=== PATIENT | female | born 1980 | race Caucasian/White ===

== ENCOUNTER 2021-03-11 13:01 | Emergency (ER) | payer BC ==
[2021-03-11 13:45] LABS: #Basophils 0.1 10x3/uL (0.0-0.2); #Eosinphils 0.1 10x3/uL (0.0-0.5); #Monocytes 0.4 10x3/uL (0.0-1.1); %Basophils 0.9 % (0.0-2.0); %Eosinophils 1.4 % (0.0-6.0); %Lymphocytes 23.2 % (18.0-47.0); %Monocytes 5.1 % (0.0-10.0); %Neutrophils 69.1 % (40.0-75.0); Hemoglobin 14.7 g/dL (12.0-15.5); Mean Corpuscular HGB CONC 33.9 g/dL (32.0-36.0); Mean Corpuscular Hemoglobin 31.4 pg (27.0-33.0); Mean Corpuscular Volume 92.5 fl (81.6-98.3); Mean Platelet Volume 10.7 fl (7.4-10.4); Platelet Count 214 10x3/uL (150-450); RBC Distribution Width 12.7 % (11.5-14.5); Red Blood Cell (RBC) Count 4.68 10x6/uL (3.90-5.03); White Blood Cell (WBC) Count 8.6 10x3/uL (3.5-10.5)
[2021-03-11 13:55] LABS: ALT (SGPT) 19 U/L (8-55); AST (SGOT) 26 U/L (5-34); Albumin 4.2 g/dL (3.5-5.0); Alkaline Phosphatase 63 U/L (40-110); Anion Gap 14 mmol/L (10-20); BUN (Urea Nitrogen) 11 mg/dL (7.0-18.7); Bilirubin, Total 0.4 mg/dL (0.2-1.2); Calc. Creatinine Clearance 0 mL/min (70-130); Calcium 9.3 mg/dL (7.8-10.44); Carbon Dioxide 21 mmol/L (22-29); Chloride 108 mmol/L (98-107); Globulin 3.2 g/dL (2.4-3.5); Glucose 84 mg/dL (70-105); Potassium 3.9 mmol/L (3.5-5.1); Protein, Total 7.4 g/dL (6.0-8.3); Sodium 139 mmol/L (136-145)
== END 2021-03-11 15:11 | disposition home or self-care (01) ==
LOC: CSHERS 13:01
DX: R42 Dizziness and giddiness (principal); R53.83 Other fatigue; R29.700 NIHSS score 0; Z85.820 Personal history of malignant melanoma of skin
CPT/HCPCS: 36415; 80053; 85025; 99284

== ENCOUNTER 2021-03-23 09:19 | Outpatient (CLI) | payer BC | END 2021-03-23 09:20 | disposition home or self-care (01) | LOC: CSHMAMMO 09:19 | PROVIDERS: ATTEND Obstetrics & Gynecology | DX: Z12.31 Encounter for screening mammogram for malignant neoplasm of breast (principal) | CPT/HCPCS: 77063; 77067 ==

== ENCOUNTER 2022-07-14 01:13 | Emergency (ER) | payer BC ==
[2022-07-14] MEDS ORDERED: Ketorolac Tromethamine 30 MG/ML VIAL ONE (01:47)
[2022-07-14 01:48] LABS: #Basophils 0.1 10x3/uL (0.0-0.2); #Eosinphils 0.3 10x3/uL (0.0-0.5); #Monocytes 0.6 10x3/uL (0.0-1.1); #Neutrophils 5.6 10x3/uL (1.5-8.4); %Eosinophils 2.6 % (0.0-6.0); %Lymphocytes 36.3 % (18.0-47.0); %Monocytes 5.9 % (0.0-10.0); %Neutrophils 54.1 % (40.0-75.0); Hemoglobin 14.2 g/dL (12.0-15.5); Mean Corpuscular HGB CONC 34.1 g/dL (32.0-36.0); Mean Corpuscular Hemoglobin 32.1 pg (27.0-33.0); Mean Corpuscular Volume 93.9 fl (81.6-98.3); Mean Platelet Volume 10.9 fl (7.4-10.4); Platelet Count 255 10x3/uL (150-450); RBC Distribution Width 11.9 % (11.5-14.5); Red Blood Cell (RBC) Count 4.43 10x6/uL (3.90-5.03); White Blood Cell (WBC) Count 10.3 10x3/uL (3.5-10.5)
[2022-07-14] MEDS ORDERED: Ondansetron PF 4 MG/2 ML Vial ONE ×2 (01:48→01:50)
[2022-07-14 02:06] LABS: BHCG - Serum Negative (NEGATIVE); Pregs Control Background? CLEAR/WHITE (CLR/WHITE); Pregs Control Bar Appear? YES (CONTROL BAR)
[2022-07-14 02:14] LABS: ALT (SGPT) 12 U/L (8-55); AST (SGOT) 12 U/L (5-34); Alkaline Phosphatase 76 U/L (40-110); Anion Gap 14 mmol/L (10-20); BUN (Urea Nitrogen) 12 mg/dL (7.0-18.7); Bilirubin, Total 0.2 mg/dL (0.2-1.2); Calc. Creatinine Clearance 0 mL/min (70-130); Carbon Dioxide 22 mmol/L (22-29); Chloride 106 mmol/L (98-107); Estimated GFR 102; Globulin 3.2 g/dL (2.4-3.5); Glucose 102 mg/dL (70-105); Lipase 29 U/L (8-78); Potassium 3.8 mmol/L (3.5-5.1); Protein, Total 7.2 g/dL (6.0-8.3); Sodium 138 mmol/L (136-145)
== END 2022-07-14 02:36 | disposition home or self-care (01) ==
LOC: CSHERS 01:13
DX: R07.9 Chest pain, unspecified (principal); R10.13 Epigastric pain
CPT/HCPCS: 71045; 80053; 83690; 84484; 84703; 85025; 85379; 93005; 96374; 96375; J1885; J2405

== ENCOUNTER 2022-08-25 15:37 | Outpatient (CLI) | payer BC | END 2022-08-25 15:38 | disposition home or self-care (01) | LOC: CSHRAD 15:37 | PROVIDERS: ATTEND Family Medicine Sports Medicine | DX: M25.531 Pain in right wrist (principal) ==

== ENCOUNTER 2022-11-08 10:20 | Outpatient (CLI) | payer BC | END 2022-11-08 10:21 | disposition home or self-care (01) | LOC: CSHMAMMO 10:20 | PROVIDERS: ATTEND Obstetrics & Gynecology | DX: Z12.31 Encounter for screening mammogram for malignant neoplasm of breast (principal); Z80.3 Family history of malignant neoplasm of breast | CPT/HCPCS: 77063; 77067 ==

== ENCOUNTER 2023-11-18 10:41 | Outpatient (CLI) | payer BC | END 2023-11-18 10:42 | disposition home or self-care (01) | LOC: CSHULT 10:41 | PROVIDERS: ATTEND Family Medicine Sports Medicine | DX: R10.13 Epigastric pain (principal); K80.20 Calculus of gallbladder without cholecystitis without obstruction | CPT/HCPCS: 76700 ==

== ENCOUNTER 2023-11-24 09:51 | Day surgery (SDC) | payer BC ==
[2023-11-24] MEDS ORDERED: Bupivacaine PF 0.5% 30 ML VIAL ONE (10:17)
[2023-11-24] MEDS ORDERED: Indocyanine Green 25 MG/10 ML VIAL ONE (11:04)
[2023-11-24] MEDS ORDERED: PROPOFOL 20 ML ONE (11:36)
[2023-11-24] MEDS ORDERED: Ondansetron PF 4 MG/2 ML Vial ONE (11:36)
[2023-11-24] MEDS ORDERED: Lidocaine 1% PF 5 ML VIAL ONE (11:36)
[2023-11-24] MEDS ORDERED: Rocuronium Bromide 10 MG/ML (10ML VIAL) ONE (11:36)
[2023-11-24] MEDS ORDERED: Dexamethasone 20 MG/5 ML VIAL ONE (11:36)
[2023-11-24] MEDS ORDERED: Lidocaine 4% PF 5 ML AMP ONE (11:37)
[2023-11-24] MEDS ORDERED: Glycopyrrolate 0.2 MG/ML 5 ML SYRINGE ONE (11:37)
[2023-11-24] MEDS ORDERED: Fentanyl 250 MCG/5 ML VIAL ONE (11:37)
[2023-11-24] MEDS ORDERED: Midazolam HCl 2 mg/2 ml Vial ONE ×2 (11:37→11:54)
[2023-11-24] MEDS ORDERED: Clindamycin/D5W 600 mg/50 ml Premix Bag ONE (11:49)
[2023-11-24] MEDS ORDERED: PHENYLEPHRINE-NS 100 MCG/ML 10 ML SYRINGE ONE (12:14)
[2023-11-24] MEDS ORDERED: EPINEPHrine 1 MG/ML AMP ONE (12:40)
[2023-11-24] MEDS ORDERED: Acetaminophen 325 MG TAB PO PRN (13:21)
[2023-11-24] MEDS ORDERED: HYDROcodone/Acetaminophen 5/325 mg Tablet PO PRN (13:21)
[2023-11-24] MEDS ORDERED: HYDROcodone/Acetaminophen 5/325 mg Tablet ONE (14:03)
== END 2023-11-24 14:45 | disposition home or self-care (01) ==
LOC: CSHSDC 09:51
PROVIDERS: ATTEND Surgery
PROC: 0FT44ZZ Resection of Gallbladder, Percutaneous Endoscopic Approach (ICD-10-PCS; principal; 2023-11-24)
DX: K80.12 Calculus of gallbladder with acute and chronic cholecystitis without obstruction (principal); E78.00 Pure hypercholesterolemia, unspecified; F41.9 Anxiety disorder, unspecified; E78.5 Hyperlipidemia, unspecified; G43.909 Migraine, unspecified, not intractable, without status migrainosus; F32.A Depression, unspecified; G47.33 Obstructive sleep apnea (adult) (pediatric); F43.10 Post-traumatic stress disorder, unspecified; Z88.0 Allergy status to penicillin; Z79.899 Other long term (current) drug therapy; Z98.890 Other specified postprocedural states
CPT/HCPCS: 88304; C1776; J0171; J1100; J2250; J2405; J2704; J3010; J3490; S0020